=== PATIENT | female | born 1960 | race Two or more races ===

== ENCOUNTER → 2018-04-10 | Outpatient (CLI) | payer BC | LOC: CIMAGING 10:01 | PROVIDERS: ATTEND Internal Medicine | DX: R41.82 Altered mental status, unspecified (principal); G31.9 Degenerative disease of nervous system, unspecified | CPT/HCPCS: 70450-PO ==

== ENCOUNTER → 2018-04-26 | Outpatient (CLI) | payer BC ==
[~2018-04-26] MED LIST: GADOBUTROL 10 ML VIAL IVP ONE
== END ==
LOC: FIMAGING 14:37
PROVIDERS: ATTEND Internal Medicine
DX: R41.89 Other symptoms and signs involving cognitive functions and awareness (principal); G31.9 Degenerative disease of nervous system, unspecified
CPT/HCPCS: A9585

== ENCOUNTER → 2018-05-08 | Outpatient (CLI) | payer BC ==
--- NOTE | 2018-05-09 15:05 | CPEEG ---
[f rep st] ELECTROENCEPHALOGRAM DATE OF STUDY: 05/08/2018 DATE OF INTERPRETATION: 05/08/2018 INTERPRETATION: Normal EEG during wakefulness and drowsiness. There were no potentially epileptogen ic abnormalities present during the recording. REPORT: This EEG contains 10 Hz alpha activity to the posterior head regions. There was no abnormal activation at rest, during photic stimulation, or hyperventilation. The patient briefly became drow sy during the study. There was no abnormal activation during drowsiness or during times of arousal. /[id number]/MODL
== END ==
LOC: FCPNEURO 13:58
PROVIDERS: ATTEND Physician Assistant Medical
DX: R41.3 Other amnesia (principal); E03.9 Hypothyroidism, unspecified

== ENCOUNTER 2018-11-03 17:56 | Observation (INO) | payer BC ==
[~2018-11-03 17:56] MED LIST changes: -GADOBUTROL 10 ML VIAL IVP ONE; +IOPAMIDOL (ISOVUE 370) 100 ML BTL IV ONE
[2018-11-03] MEDS ORDERED: RIVAROXABAN 15 MG TAB PO ONE (17:59)
--- NOTE | 2018-11-03 18:01 | EDPHY ---
H & P Time Seen by Provider: 11/03/18 17:58 Medical Decision Making - Diagnostics Imaging Results: Imaging Impressions Chest/Thorax CTA 11/03/18 18:00 Impression: 1. Small volume bilateral pulmonary emboli involving segmental branches that are nonocclusive to both lower lobes as well as right middle lobe. 2. Incidental subsegmental atelectasis right middle lobe and lingula adjacent to prominence of the pericardial fat pad. Findings discussed with Neil Esteves M.D. at 17:48 hour, 11/03/2018. Imaging: Discussed imaging studies w/ call center director Radiologist, I viewed and interpreted images myself ED Course/Re-evaluation: CHIEF COMPLAINT: Bilateral PEs HISTORY OF PRESENT ILLNESS: The patient is a 58 y/o female with a history of severe early onset dementia arriving with her sister directly from imaging with new PEs diagnosed by CTA today. Her sister reports she's complained of fatigue and shortness of breath with any exertion worsening over the past few months. No history of blood clots in the family. Her sister reports the patient is quite sedentary. No recent illness or trauma. History comes from patient's sister due to dementia. REVIEW OF SYSTEMS: A comprehensive 10 system review of systems is otherwise negative aside from elements mentioned in the history of present illness and medical decision making. PHYSICAL EXAM: HR, BP, O2 Sat, RR. Temp noted General Appearance: Alert, well hydrated, confused at baseline, and non-toxic appearing. Head: Atraumatic without scalp tenderness or obvious injury Eyes: Pupils equal, round, reactive to light and accommodation, EOMI, no trauma , no injection. Ears: Clear bilaterally, no perforation, normal landmarks Nose: Atraumatic, no rhinorrhea, clear. Throat: There is no erythema or exudates, no lesions, normal tonsils, mucus membranes moist. Neck: Supple, non-tender, no lymphadenopathy. Respiratory: No retractions, no distress, no wheezes, and no accessory muscle use. Lungs are clear to auscultation bilaterally. Cardiovascular: Regular rate and rhythm, no murmurs, rubs, or gallops. Good capillary refill all extremities. Gastrointestinal: Abdomen is soft, non-tender, non-distended, no masses, no rebound, no guarding, no peritoneal signs. Musculoskeletal: Normal active ROM of all extremities, atraumatic. Neurological: Alert, confused at baseline, and interactive. The patient has non- focal cranial nerves, motor, sensory, and cerebellar exam. Skin: No rashes, good turgor, no nodules on palpation. PAST MEDICAL HISTORY: Early onset dementia PAST SURGICAL HISTORY: SOCIAL HISTORY: Sister at bedside involved in care. Sedentary lifestyle. PCP: Dr. Esteves. DIAGNOSTICS/PROCEDURES/CRITICAL CARE TIME: Outpatient Chest CTA: bilateral PEs. DIFFERENTIAL DIAGNOSIS: The differential diagnosis for the patient's shortness of breath and hypoxemia included but was not limited to pneumonia, myocardial infarction, acute mountain sickness, high altitude pulmonary edema, congestive heart failure, and pulmonary embolus. MEDICAL DECISION MAKING: This is a 58 y/o female who presents with just diagnosed bilateral PEs on outpatient chest CTA in the setting of several months of progressive exertional dyspnea and fatigue. Exam is unremarkable apart from baseline confusion. Plan for IV, labs, 15mg PO Xarelto, and admission. Spoke with hospitalist service. Dr. Johns accepts admission. Departure - Departure Disposition: [facility] Inpatient Acute Clinical Impression: Pulmonary embolism Qualifiers: Pulmonary embolism type: other Chronicity: acute Acute cor pulmonale presence: without acute cor pulmonale Qualified Code(s): I26.99 - Other pulmonary embolism without acute cor pulmonale Condition: Fair Referrals: Neil Esteves MD [Primary Care Provider] - As per Instructions Report Scribed for: Suleman Reyes Report Scribed by: Lena Lynn Date of Report: 11/03/18 Time of Report: 18:01
[2018-11-03] MEDS ORDERED: ONDANSETRON 4 MG/2 ML VIAL IVP PRN (19:03)
[2018-11-03] MEDS ORDERED: ONDANSETRON DISINTEGRATING 4 MG TAB PO PRN (19:03)
[2018-11-03] MEDS ORDERED: ACETAMINOPHEN 325 MG TAB PO PRN (19:03)
--- NOTE | 2018-11-03 19:17 | PDGENHP ---
<Janice Vargas - Last Filed: 11/03/18 19:51> History and Physical - Chief Complaint Fatigue and dyspnea with exertion - History of Present Illness She has bilateral pulmonary embolisms. 58 y/o female with early onset of dementia presents from her PCP Dr. Esteves's office with bilateral pulmonary embolisms diagnosed by Chest CTA today. Her sister, Carly, was present with her. For a few months now, the pt c/o fatigue and dyspnea with exertion. The pt leads a very sedentary lifestyle with sitting and watching television and occasionally ambulating to the wash room or ambulating for meal time. She resides at [facility]. The pt denies diarrhea, chest pains, vomiting, nausea, fevers, chills. She is being admitted for diagnostic work-up and monitoring. Past Medical/Surgical History 1. Dementia 2. Hypothyroidism 3. Total thyroidectomy (2010) Social 1. Lives at [facility] 2. Denies tobacco or illicit drug use. Denies alcohol use. Stopped drinking alcohol suddenly one year ago. Reports drinking one bottle of wine/night. History Information - Allergies/Home Medication List Allergies/Adverse Reactions: No Known Allergies Allergy (Unverified 11/03/18 18:36) Home Medications: Carboxymethylcellulose 1% [Refresh Celluvisc (*)] 1 drop EACHEYE HS 11/03/18 [ Last Taken 11/02/18 08:00] Escitalopram Oxalate [Lexapro] 10 mg PO DAILY 11/03/18 [Last Taken 11/03/18 08: 00] Latanoprostene Bunod [Vyzulta] 1 drop EACHEYE HS 11/03/18 [Last Taken 11/02/18 20:00] Levothyroxine [Synthroid 88 mcg (*)] 88 mcg PO DAILY 11/03/18 [Last Taken 08:00] Lisinopril [Zestril 10 mg (*)] 10 mg PO DAILY 11/03/18 [Last Taken 11/03/18 08: 00] Lisinopril/Hydrochlorothiazide [Lisinopril-Hctz 10-12.5 mg Tab] 1 tab PO DAILY 11/03/18 [Last Taken 11/03/18 08:00] Melatonin [Melatonin 3 MG (*)] 3 mg PO HS 11/03/18 [Last Taken 11/02/18 21:00] I have personally reviewed and updated: family history, medical history, social history, surgical history Past Medical History: See HPI list - Surgical History Additional surgical history: See HPI list - Family History Positive for: stroke - Social History Smoking Status: Never smoked Alcohol Use: Sober Drug Use: None Review of Systems Review of Systems: ROS: 10pt was reviewed & negative except for what was stated in HPI & below Constitutional: Reports: no symptoms EENMT: Reports: no symptoms Cardiac: Reports: no symptoms Respiratory: Reports: shortness of breath Gastrointestinal: Reports: no symptoms Genitourinary: Reports: no symptoms Muscolosketal: Reports: no symptoms Skin: Reports: dryness Neurological: Reports: pre-existing deficit Hematologic/Lymphatic: Reports: no symptoms Immunologic/Allergy: Reports: no symptoms Physical Exam Physical Exam: Lab data and imaging were reviewed Temp Pulse Resp BP Pulse Ox 36.5 C 90 16 136/86 H 93 11/03/18 18:09 11/03/18 18:09 11/03/18 18:09 11/03/18 18:09 11/03/18 18:09 Constitutional: no apparent distress, appears nourished, not in pain, obese Eyes: PERRL, anicteric sclera, EOMI Ears, Nose, Mouth, Throat: moist mucous membranes, hearing normal, ears appear normal, no oral mucosal ulcers Cardiovascular: regular rate and rhythym, no murmur, rub, or gallop, tachycardia , edema (Bilateral pedal edema; Dr. Esteves started her on HCTZ in April 2018 for this edema; non-pitting) Peripheral Pulses: 2+: dorsalis-pedis (R) (Radial 2+), dorsalis-pedis (L) ( Radial 2+) Respiratory: reduced air movement (Bilateral lower bases) Gastrointestinal: normoactive bowel sounds, soft, non-tender abdomen, no palpable masses Genitourinary: no bladder fullness, no bladder tenderness Skin: warm, normal color, no rashes or abrasions, no fluctuance, no induration, No mottled Musculoskeletal: full muscle strength, no muscle tenderness, normal joint ROM, no joint effusions Neurologic: AAOx3, sensation intact bilaterally, CN II-XII Intact Psychiatric: interacting appropriately, not encephalopathic, thought process linear, flat affect Lymph, Heme, Immunologic: no cervical LAD, no supraclavicular LAD Assessment & Plan Plan: This is a 58 y/o female with early onset dementia presenting with bilateral pulmonary embolisms. She has a sedentary lifestyle. 1. Bilateral PEs: Chest CTA w/IV contrast reveal small volume bilateral pulmonary emboli involving segmental branches that are nonocclusive to both lower lobes as well as right middle lobe. -Given Xarelto 15 mg PO in emergency room; will continue Xarelto BID 15 mg starting tomorrow morning -Cont tele/pulse ox monitoring -Multiple testing pending including: antithrombin actin/cardiolipin antibody/d- dimer/factor V leiden/fibrinogen, protein c/s, PT/PTT -I considered US doppler of BLE to locate origin but will not perform this test since BLE are symmetrically slightly edematous, good circulation, no skin discoloration, good pedal pulses, no calf tenderness. She does lead a very sedentary lifestyle. Her course of treatment would not change should we find DVTs. For all these reasons, an US will not be performed. 2. Hyperkalemia: (5.8). Asymptomatic. -Cont tele/pulse ox monitoring -Will recheck CMP tomorrow morning -Should she become symptomatic or continues to be elevated tomorrow, recommend Kayexalate. Her renal function is WNL. 3. Transaminitis: no abdominal tenderness or pain. No nausea, vomiting. -Will recheck with CMP tomorrow -Checking clotting factors 4. Hypothyroidism: on levothyroxine 5. Hypertension: on lisinopril and lisinopril-HCTZ Diet: Regular Code: Full SCDs: Xarelto, ambulate within the room Dispo: Admit to obs <Nitesh Johns - Last Filed: 11/03/18 23:55> History and Physical - History of Present Illness Review of Systems Review of Systems: Physical Exam Physical Exam: Temp Pulse Resp BP Pulse Ox 36.9 C 75 16 111/74 93 11/03/18 23:35 11/03/18 23:35 11/03/18 23:35 11/03/18 23:35 11/03/18 23:35 Lab Data & Imaging Review PT 12.8 SEC (12.0-15.0) 11/03/18 18:25 INR 0.94 (0.83-1.16) 11/03/18 18:25 APTT 29.0 SEC (23.0-38.0) 11/03/18 18:25 Fibrinogen 423 mg/dL (214-456) 11/03/18 18:25 D-Dimer 0.97 ug/mLFEU (0.00-0.50) H 11/03/18 18:25 Assessment & Plan Assessment: Pulmonary embolism (Acute) Plan: Patient seen and evaluated independently and care plan reviewed with VIC Vargas, agree with her plan as outlined above, please see separate note for further details.
[2018-11-03 19:20] LABS: INR 0.94 (0.83-1.16); PROTIME(PATIENT) 12.8 SEC (12.0-15.0)
[2018-11-03] MEDS ORDERED: LATANOPROSTENE BUNOD EACHEYE SCH (21:00)
[2018-11-03] MEDS ORDERED: MELATONIN 3 MG TAB PO SCH (21:00)
[2018-11-03] MEDS ORDERED: CARBOXYMETHYLCELLULOSE 1% 0.4 ML DROPERETTE EACHEYE SCH (21:00)
--- NOTE | 2018-11-03 23:00 | HOSPPROG ---
Hospitalist Progress Note Assessment/Plan: This is a 58 y/o female with severe early onset dementia presenting with SOB and fatigue found to be 2/2 bilateral pulmonary embolisms. # acute bilateral PE: on personal review of chest CTA noted to have small bilateral PE in both lower lobes, started on xarelto in ER with hypercoagulable panel sent in ER prior to initiation of xarelto. Low PESI score and patient doing well without need for supplemental o2 at this time. Will obtain ecg to r/ o e/o right heart strain, will monitor on tele and monitor pulse ox # severe early onset dementia: sister involved in her care, will get pt/ot/CM involved # hyperkalemia: mild, will provide IVF and recheck # transaminitis: mild and present previously as well, will trend # hypothyroid/htn: continue home meds # observation status Patient new to my care. Old records reviewed and summarized as above. Care plan reviewed with ER doctor and [employer]INE OPERATOR Stella as above, please see [facility] H[facility]P for further details. Objective: Vital Signs Temp Pulse Resp BP Pulse Ox 37.0 C 78 16 147/80 H 94 11/03/18 19:47 11/03/18 19:47 11/03/18 19:47 11/03/18 19:47 11/03/18 19:47 PT 12.8 SEC (12.0-15.0) 11/03/18 18:25 INR 0.94 (0.83-1.16) 11/03/18 18:25 ICD10 Worksheet Patient Problems: Problems Problem Status Onset Pulmonary embolism Acute
--- NOTE | 2018-11-04 08:49 | HOSPPROG ---
Hospitalist Progress Note Assessment/Plan: 58 y/o female with early onset of dementia presents from her PCP Dr. Esteves's office with bilateral pulmonary embolisms diagnosed by Chest CTA today. Her sister, Carly, was present with her. For a few months now, the pt c/o fatigue and dyspnea with exertion. The pt leads a very sedentary lifestyle with sitting and watching television and occasionally ambulating to the wash room or ambulating for meal time. She resides at [facility]. The pt denies diarrhea, chest pains, vomiting, nausea, fevers, chills. # acute bilateral PE - CTA noted to have small bilateral PE in both lower lobes - Xarelto - hypercoagulable panel sent in ER prior to initiation of Xarelto - EKG shows sinus with probable left atrial enlargement - she has no chest pain, no shortness of breath # severe early onset dementia - sister involved - lives at [facility] - dementia is significant # hyperkalemia -resolved # transaminitis: mild and present previously -have further f/u w Dr Merino # hypothyroid/htn: continue home meds # plan:dc home Subjective: juan ramon said she is feeling fine. Objective: Vital Signs Temp Pulse Resp BP Pulse Ox 36.8 C 72 16 113/69 93 11/04/18 08:26 11/04/18 08:26 11/04/18 08:26 11/04/18 08:26 11/04/18 08:26 Laboratory Results 11/04/18 05:05 11/03/18 11/04/18 11/05/18 05:59 05:59 05:59 Intake Total 500 Balance 500 PT 12.8 SEC (12.0-15.0) 11/03/18 18:25 INR 0.94 (0.83-1.16) 11/03/18 18:25 - Physical Exam Constitutional: no apparent distress, appears nourished, not in pain Eyes: PERRL Ears, Nose, Mouth, Throat: hearing normal Cardiovascular: regular rate and rhythym Respiratory: no respiratory distress Gastrointestinal: normoactive bowel sounds Skin: warm Neurologic: other (alert and oriented to herself and her sister's name) Psychiatric: interacting appropriately, poor memory ICD10 Worksheet Patient Problems: Problems Problem Status Onset Pulmonary embolism Acute
[2018-11-04] MEDS ORDERED: LEVOTHYROXINE 88 MCG TAB PO SCH (09:00)
[2018-11-04] MEDS ORDERED: ESCITALOPRAM OXALATE 10 MG TAB PO SCH (09:00)
[2018-11-04] MEDS ORDERED: LISINOPRIL/HCTZ 10/12.5 MG 1 EA TAB PO SCH (09:00)
[2018-11-04] MEDS ORDERED: LISINOPRIL 10 MG TAB PO SCH (09:00)
[2018-11-04] MEDS: RIVAROXABAN 15 MG TAB PO SCH ×2 (09:18→16:51)
[2018-11-04 11:59] VITALS: BP 115/69
--- NOTE | 2018-11-04 15:48 | GDS ---
DISCHARGE DIAGNOSES: 1. Acute bilateral pulmonary embolus. 2. Severe early-onset dementia. 3. Hyperkalemia. 4. Transaminitis. 5. Hypothyroidism. 6. Hypertension. HISTORY OF PRESENT ILLNESS: Briefly, this is a 58-year-old female with early onset dementia. She pr esented from her primary care's office after it was noted that she had bilateral pulmonary emboli daphne gnosed on the CT. Her sister was present with her. The patient has been complaining of some fatigue and dyspnea with exertion. She has a very sedentary lifestyle and mainly sits and watches TV. She resides at [facility]. The CTA revealed a small volume bilateral pulmonary emboli involving t he segmental branches that are nonocclusive to both lower lobes as well as right middle lobe. She matute s incidental subsegmental atelectasis in right middle lobe and lingula adjacent to prominence of the pericardial fat pad. Today, she is feeling well. She has been started on Xarelto. She will follow up with Dr. Esteves in regard to her hyper coagulopathy studies. HOSPITAL COURSE: 1. Acute bilateral PE. She is on Xarelto. Her EKG shows sinus rhythm with probable left atrial enl argement. She has no chest pain, no shortness of breath. 2. Severe early-onset dementia. This is quite severe. She is only oriented to herself during my in [facility]. She would likely do best returning to her environment. 3. Hyperkalemia, resolved. 4. Transaminitis mild, she has had this before. Further workup with Dr. Esteves. 5. Hypothyroidism on Synthroid. 6. Hypertension stable. DISCHARGE CONDITION: Stable. Blood pressure is 113/69, respiratory rate 16, pulse 72, temperature 3 6.8 Celsius, O2 saturation on room air 93%. MEDICATIONS AT DISCHARGE: Please see the EMR. DISCHARGE INSTRUCTIONS: 1. To further follow up with Dr. Esteves in regard to all of her pending labs. 2. Further evaluation of her liver function tests. 3. To continue Xarelto. She will be on Xarelto 15 mg twice daily for the next 20 days and then it i s once daily from there on. 4. To be aware that this medication caused bleeding. If she needs any procedures done, her doctor o r dentist needs to be aware. /[id number]/MODL
--- NOTE | 2018-11-04 15:55 | ASMTCMCOM ---
CM Note CM Note Notes: Pt is a 58 y/o female admitted for bilateral pes and low volume. CM spoke to Mandi Aguiar NP regarding this case. Pt lives at [facility] in [place]. CM spoke to Pari and sent over d/c paperwork. CM spoke to both of pts sisters Carly and Lourdes, both [facility]. Lourdes will be bringing pt home. CM available for changes. Plan: [facility] Date Signed: 11/04/2018 03:54 PM Electronically Signed By:MELITA Márquez
--- NOTE | 2018-11-04 15:56 | ASMTLACE ---
LACE Length of stay for Answers: 1 day current admission Acuity / Level of Answers: No Care: Did the patient have an inpatient admission? Comorbidities - select Answers: Dementia all that apply Other Notes: PE; Hypothyroid # of Emergency department Answers: 1-2 visits in the last 6 months Score: 6 Date Signed: 11/04/2018 03:55 PM Electronically Signed By:MELITA Márquez
--- NOTE | 2018-11-04 18:05 | CPEKG ---
Test Reason : OPEN Blood Pressure : / mmHG Vent. Rate : 077 BPM Atrial Rate : 077 BPM P-R Int : 184 ms QRS Dur : 097 ms QT Int : 407 ms P-R-T Axes : 058 003 029 degrees QTc Int : 461 ms Sinus rhythm Probable left atrial enlargement Borderline T abnormalities, anterior leads Confirmed by Soni Castle ([id number]) on 11/04/2018 6:04:50 PM Referred By: Confirmed By:Soni Castle
== END 2018-11-04 17:07 ==
LOC: EDSTATUS 18:00 → F3E 19:40
PROVIDERS: ADMIT Internal Medicine; ATTEND Internal Medicine
DX: I26.99 Other pulmonary embolism without acute cor pulmonale (principal); G30.0 Alzheimer's disease with early onset; F02.80 Dementia in other diseases classified elsewhere, unspecified severity, without behavioral disturbance, psychotic disturbance, mood disturbance, and anxiety; E87.5 Hyperkalemia; E03.9 Hypothyroidism, unspecified; I10 Essential (primary) hypertension; R74.0 Nonspecific elevation of levels of transaminase and lactic acid dehydrogenase [LDH]
CPT/HCPCS: 71275; 93005; 97161; 97165; G0378; 85300-90; 85303-90; 85306-90; 86147-90; Q9967

== ENCOUNTER → 2018-11-03 | Outpatient (CLI) | payer BC | LOC: CIMAGING 14:23 ==